=== PATIENT | male | born 1970 | race Two or more races ===

== ENCOUNTER 2023-02-10 07:17 | Inpatient (IN) | payer OTHER ==
[~2023-02-10] VITALS: Ht 185.4 cm; Wt 90.7 kg
== END 2023-02-13 11:02 | disposition designated cancer center or children's hospital (05) | DRG 281 ==
LOC: ER 07:17 → MEDI 18:43
PROVIDERS: ADMIT Internal Medicine; ATTEND Internal Medicine
PROC: 4A12X4Z Monitoring of Cardiac Electrical Activity, External Approach (ICD-10-PCS; principal; 2023-02-10)
PROC: B24BYZZ Ultrasonography of Heart with Aorta using Other Contrast (ICD-10-PCS; 2023-02-10)
PROC: 3E0F7SF Introduction of Other Gas into Respiratory Tract, Via Natural or Artificial Opening (ICD-10-PCS; 2023-02-10)
DX: I16.0 Hypertensive urgency (principal); I21.4 Non-ST elevation (NSTEMI) myocardial infarction; I24.9 Acute ischemic heart disease, unspecified; I45.19 Other right bundle-branch block; I11.9 Hypertensive heart disease without heart failure; D72.829 Elevated white blood cell count, unspecified; M10.9 Gout, unspecified; F17.200 Nicotine dependence, unspecified, uncomplicated; D75.1 Secondary polycythemia

== ENCOUNTER → 2024-09-07 | Emergency (ER) | payer OTHER ==
[~2024-09-07] VITALS: Ht 185.4 cm; Wt 127.0 kg
[~2024-09-07] MED LIST: CLOPIDOGREL BIS75 MG PO; LOSARTAN POTASS50 MG PO; METOPROLOL SUCC25 MG PO; OSEL75CA PO; ROSUVASTATIN CA40 MG PO; ZITHROMAX200 MG PO
[2024-09-07 14:37] LABS: HEMOGLOBIN 15.7 g/dL (13-16.00); MEAN CELL VOLUME 85.7 fL (80.0-100.00); MEAN CORPUSCULAR HEMOGLOBIN 29.9 pg (27.00-32.0); MEAN CORPUSCULAR HGB CONC 34.9 g/dl (32.0-36.0); PLATELET COUNT 189 K/uL (150-450); RED BLOOD COUNT 5.25 M/uL (4.00-6.00); RED CELL DISTRIBUTION WIDTH 13.4 % (11.5-14.5)
== END | disposition home or self-care (01) ==
LOC: ER 10:01
DX: J10.1 Influenza due to other identified influenza virus with other respiratory manifestations (principal); B34.9 Viral infection, unspecified; I10 Essential (primary) hypertension